=== PATIENT | female | born 1955 | race African-American/Black ===

== ENCOUNTER 2018-06-15 11:24 | Emergency (ER) | payer OTHER ==
[2018-06-15] MEDS ORDERED: NORMAL SALINE 1000 ML 1,000 ML IV ONE (11:50)
--- NOTE | 2018-06-15 11:51 | ER Document Report ---
ED Medical Screen (RME) - General Chief Complaint: Rectal Bleeding Stated Complaint: RECTAL BLEEDING Time Seen by Provider: 06/15/18 11:46 Notes: RAPID MEDICAL EVALUATION DISCLOSURE I have seen this patient as part of a Rapid Medical Evaluation and, if applicable, placed any initially appropriate orders. The patient will be seen and fully evaluated, including a full history and physical exam, by a provider ( in Main ED or Fast Track) when a room becomes available. 62-year-old female PMH hemorrhoids here with complaints of bright red blood with wiping ongoing for the past few days. She has not had a bowel movement in 2 days and believes she may have been straining. She does not know she currently has a hemorrhoid but has had a hemorrhoid in the past many years ago. She does not have any abdominal pain nausea vomiting lightheadedness. She does not take any blood thinners. EXAM Mildly tachycardic No abdominal TTP TRAVEL OUTSIDE OF THE [place] IN LAST 30 DAYS: No - Related Data Allergies/Adverse Reactions: No Known Allergies Allergy (Unverified 06/15/18 11:25) Past Medical History Skin Medical History: Comment Only Hx MRSA - MRSA BUTTOCKS JUNE 2009 Physical Exam - Vital signs Vitals: Temp Pulse Resp BP Pulse Ox 98.6 F 107 H 16 172/88 H 98 06/15/18 11:30 06/15/18 11:30 06/15/18 11:30 06/15/18 11:30 06/15/18 11:30 Course - Vital Signs Vital signs: Temp Pulse Resp BP Pulse Ox 98.6 F 107 H 16 172/88 H 98 06/15/18 11:30 06/15/18 11:30 06/15/18 11:30 06/15/18 11:30 06/15/18 11:30 Doctor's Discharge - Discharge Referrals: LOCALMD,NO [Primary Care Provider] - Follow up as needed
[2018-06-15 12:29] LABS: ABSOLUTE EOSINOPHILS # (AUTO) 0.2 10^3/uL (0.0-0.6); ABSOLUTE MONOCYTES (AUTO) 0.5 10^3/uL (0.1-1.4); ABSOLUTE NEUT (AUTO) 4.5 10^3/uL (1.7-8.2); BASOPHILS % (AUTO) 0.6 % (0-2); EOSINOPHILS % (AUTO) 2.2 % (0-6); HEMATOCRIT 43.5 % (36.0-47.0); HEMOGLOBIN 14.4 g/dL (12.0-15.5); LYMPHOCYTES % (AUTO) 36.8 % (13-45); MEAN CORPUSCULAR HEMOGLOBIN 27.2 pg (27.0-33.4); MEAN CORPUSCULAR VOLUME 82 fl (80-97); MONOCYTES % (AUTO) 5.5 % (3-13); PLATELET COUNT 239 10^3/uL (150-450); RED BLOOD COUNT 5.29 10^6/uL (3.72-5.28); RED CELL DISTRIBUTION WIDTH 13.6 % (11.5-14.0); SEGMENTED NEUTROPHILS % (AUTO) 54.9 % (42-78); TOTAL CELLS COUNTED % (AUTO) 100 %; WHITE BLOOD COUNT 8.2 10^3/uL (4.0-10.5)
[2018-06-15 12:36] LABS: INTERNATIONAL RATION (INR) 0.96; PARTIAL THROMBOPLASTIN TIME 26.1 SEC (23.5-35.8); PROTHROMBIN TIME 13.3 SEC (11.4-15.4)
[2018-06-15 12:46] LABS: ALANINE AMINOTRANSFERASE 27 U/L (9-52); ALBUMIN 4.3 g/dL (3.5-5.0); ALKALINE PHOSPHATASE 87 U/L (38-126); ANION GAP 16 (5-19); ASPARTATE AMINO TRANSFERASE 22 U/L (14-36); BILIRUBIN,DIRECT 0.2 mg/dL (0.0-0.4); BILIRUBIN,TOTAL 0.4 mg/dL (0.2-1.3); BLOOD UREA NITROGEN 10 mg/dL (7-20); CALCIUM 9.8 mg/dL (8.4-10.2); CARBON DIOXIDE 25 mmol/L (22-30); CHLORIDE 103 mmol/L (98-107); GLUCOSE 141 mg/dL (75-110); LIPASE 67.3 U/L (23-300); POTASSIUM 4.1 mmol/L (3.6-5.0); SODIUM 143.6 mmol/L (137-145); TOTAL PROTEIN 7.5 g/dL (6.3-8.2)
[2018-06-15 14:10] LABS: APPEARANCE,URINE SLIGHTLY-CLOUDY; BILIRUBIN,URINE NEGATIVE (NEGATIVE); COLOR,URINE YELLOW; GLUCOSE, URINE 150 mg/dL (NEGATIVE); KETONES,URINE NEGATIVE (NEGATIVE); LEUKOCYTE ESTERASE,URINE NEGATIVE (NEGATIVE); NITRITE,URINE NEGATIVE (NEGATIVE); PROTEIN,URINE NEGATIVE (NEGATIVE); URINE SPECIFIC GRAVITY 1.009; UROBILINOGEN,URINE NEGATIVE mg/dL (<2.0)
--- NOTE | 2018-06-15 15:32 | ER Document Report ---
ED GI Bleed / Rectal Pain - General Chief Complaint: Rectal Bleeding Stated Complaint: RECTAL BLEEDING Time Seen by Provider: 06/15/18 11:46 Mode of Arrival: Ambulatory Information source: Patient Notes: Patient is a 62-year-old female who presents to the ER today for bright red blood per rectum and on the toilet paper 2 days. Patient has a history of hemorrhoids but does not know if she has any hemorrhoids at this time. She states that she has not had a bowel movement in 3 days and has been straining a lot. She has not tried anything for her symptoms. She states that [place] went [place] but they sent her here for rectal bleeding. Patient denies any abdominal pain, nausea, vomiting, history of any abdominal disorders. TRAVEL OUTSIDE OF THE [place] IN LAST 30 DAYS: No - Related Data Allergies/Adverse Reactions: No Known Allergies Allergy (Unverified 06/15/18 11:25) Past Medical History - General Information source: Patient - Social History Smoking Status: Never Smoker Chew tobacco use (# tins/day): No Frequency of alcohol use: None Drug Abuse: None Family History: Reviewed & Not Pertinent Patient has suicidal ideation: No Patient has homicidal ideation: No Renal/ Medical History: Denies: Hx Peritoneal Dialysis Skin Medical History: Comment Only Hx MRSA - MRSA BUTTOCKS JUNE 2009 Review of Systems - Review of Systems Constitutional: No symptoms reported EENT: No symptoms reported Cardiovascular: No symptoms reported Respiratory: No symptoms reported Gastrointestinal: See HPI Genitourinary: No symptoms reported Female Genitourinary: No symptoms reported Musculoskeletal: No symptoms reported Skin: No symptoms reported Hematologic/Lymphatic: No symptoms reported Neurological/Psychological: No symptoms reported Physical Exam - Vital signs Vitals: Temp Pulse Resp BP Pulse Ox 98.6 F 107 H 16 172/88 H 98 06/15/18 11:30 06/15/18 11:30 06/15/18 11:30 06/15/18 11:30 06/15/18 11:30 - Notes Notes: PHYSICAL EXAMINATION: GENERAL: Well-appearing and in no acute distress. HEAD: Atraumatic, normocephalic. EYES: Pupils equal round and reactive to light, extraocular movements intact, sclera anicteric, conjunctiva are normal. NECK: Normal range of motion, supple without lymphadenopathy LUNGS: CTAB and equal. No wheezes rales or rhonchi. HEART: Regular rate and rhythm without murmurs ABDOMEN: Soft, no tenderness. No guarding, no rebound BACK: no vertebral tenderness, normal ROM Rectal: Multiple external and internal hemorrhoids, normal tone, specks of bright red blood after rectal exam GI/: no CVA tenderness EXTREMITIES: Normal range of motion, no pitting edema. No cyanosis. NEUROLOGICAL: Cranial nerves grossly intact. Normal sensory/motor exams. PSYCH: Normal mood, normal affect. SKIN: Warm, Dry, normal turgor, no rashes or lesions noted Course - Re-evaluation Re-evalutation: 06/15/18 18:18 Patient has multiple external and internal hemorrhoids. I will start her on a stool softener, hydrocortisone suppositories as well as cream for the external hemorrhoids. Hemoglobin is normal today. Patient has no tenderness on abdominal exam. 06/16/18 08:18 - Vital Signs Vital signs: Temp Pulse Resp BP Pulse Ox 97.7 F 88 17 139/77 H 99 06/15/18 16:35 06/15/18 16:35 06/15/18 16:35 06/15/18 16:35 06/15/18 16:35 - Laboratory Result Diagrams: 06/15/18 12:05 06/15/18 12:05 Laboratory results interpreted by me: 06/15/18 06/15/18 06/15/18 12:05 12:05 13:43 RBC 5.29 H Glucose 141 H Urine Glucose (UA) 150 H Discharge - Discharge Clinical Impression: Bleeding hemorrhoids Condition: Stable Disposition: HOME, SELF-CARE Additional Instructions: Return immediately for any new or worsening symptoms. Follow up with primary care provider, call tomorrow to make followup appointment. Prescriptions: Docusate Sodium 100 mg PO DAILY #30 capsule Hydrocortisone Acetate [Tucks] 19.8 gm RC BID #1 oint..gm. Hydrocortisone Acetate 25 mg RC BID #28 supp.rect Referrals: LOCALMD,NO [NO LOCAL MD] - Follow up as needed
[2018-06-15 16:37] VITALS: BP 139/77
== END 2018-06-15 16:37 | disposition home or self-care (01) ==
LOC: ER 11:24
DX: K64.8 Other hemorrhoids (principal); K64.4 Residual hemorrhoidal skin tags; R19.4 Change in bowel habit
CPT/HCPCS: 99283; 96360; 36415; 83690; 85025; 85610; 85730; 80053; 81001; J7030

== ENCOUNTER 2019-04-05 14:43 | Emergency (ER) | payer OTHER ==
--- NOTE | 2019-04-05 16:06 | ER Document Report ---
ED Medical Screen (RME) - General Chief Complaint: Dizziness Stated Complaint: EAR AND EYE PAIN Time Seen by Provider: 04/05/19 15:56 Mode of Arrival: Ambulatory Information source: Patient TRAVEL OUTSIDE OF THE [place] IN LAST 30 DAYS: No - HPI Patient complains to provider of: ears clogged, floater in right eye, balance problem Notes: 04/05/19 16:05 Patient here with complaints of seeing floaters in her right eye, feeling dizzy and having some balance problems and feeling like her ears are clogged up. [facility] No headache, no blurred or loss vision. No unilateral numbness, [place], weakness. No chest pain or shortness of breath. No nausea, vomiting, diarrhea. Exam Nontoxic, no distress. Nonfocal neurological exam. Clear effusion behind both TMs with no erythema. Lungs clear and equal throughout. Heart sounds normal. Plan CBC, CMP, troponin, EKG, chest x-ray, head CT, visual acuity. An initial examination was made on the patient as part of the triage process, and it was determined a more comprehensive evaluation was necessary. Initial labs were ordered and patient was transferred to another provider in the ED who assumed care and finished evaluation and plan. - Related Data Allergies/Adverse Reactions: No Known Allergies Allergy (Verified 04/05/19 14:46) Past Medical History - Social History Frequency of alcohol use: None Drug Abuse: None - Past Medical History Cardiac Medical History: Reports: Hx Hypertension Endocrine Medical History: Reports: Hx Diabetes Mellitus Type 2 Renal/ Medical History: Denies: Hx Peritoneal Dialysis Musculoskeltal Medical History: Reports Hx Arthritis Skin Medical History: Comment Only Hx MRSA - MRSA BUTTOCKS JUNE 2009 Past Surgical History: Reports: Hx Appendectomy, Hx Section - x1, Hx Hysterectomy Physical Exam - Vital signs Vitals: Temp Pulse Resp BP Pulse Ox 98.7 F 109 H 16 125/81 97 04/05/19 14:48 04/05/19 14:48 04/05/19 14:48 04/05/19 14:48 04/05/19 14:48 Course - Vital Signs Vital signs: Temp Pulse Resp BP Pulse Ox 98.7 F 109 H 16 125/81 97 04/05/19 14:48 04/05/19 14:48 04/05/19 14:48 04/05/19 14:48 04/05/19 14:48
--- NOTE | 2019-04-05 16:25 | RADIOLOGY REPORT (SQ) ---
EXAM DESCRIPTION: CHEST SINGLE VIEW COMPLETED DATE/TIME: 04/05/2019 4:15 pm REASON FOR STUDY: dizziness COMPARISON: 09/22/2007 EXAM PARAMETERS: NUMBER OF VIEWS: One view. TECHNIQUE: Single frontal radiographic view of the chest acquired. RADIATION DOSE: NA LIMITATIONS: None. FINDINGS: LUNGS AND PLEURA: No opacities, masses or pneumothorax. No pleural effusion. MEDIASTINUM AND HILAR STRUCTURES: No masses. Contour normal. HEART AND VASCULAR STRUCTURES: Heart normal in size. Normal vasculature. BONES: No acute findings. HARDWARE: None in the chest. OTHER: No other significant finding. IMPRESSION: NO ACUTE RADIOGRAPHIC FINDING IN THE CHEST. TECHNICAL DOCUMENTATION: JOB ID: [id number] [employer]- All Rights Reserved Reading location - IP/workstation name: [email or web address]
--- NOTE | 2019-04-05 16:53 | RADIOLOGY REPORT (SQ) ---
EXAM DESCRIPTION: CT HEAD WITHOUT COMPLETED DATE/TIME: 04/05/2019 4:35 pm REASON FOR STUDY: dizziness, visual floaters right eye COMPARISON: None. TECHNIQUE: Axial images acquired through the brain without intravenous contrast. Images reviewed wi th bone, brain and subdural windows. Additional sagittal and coronal reconstructions were generated. Images stored on PACS. All CT scanners at this facility use dose modulation, iterative reconstruction, and/or weight based d osing when appropriate to reduce radiation dose to as low as reasonably achievable (ALARA). [facility]: Dose Right [facility]: CareDose [facility]: Dose Right [facility]: Teradose 4D [facility]: Smart [employer] RADIATION DOSE: CT Rad equipment meets quality standard of care and radiation dose reduction techniq ues were employed. CTDIvol: 53.2 mGy. DLP: 964 mGy-cm. mGy. LIMITATIONS: None. FINDINGS: VENTRICLES: Normal size and contour. CEREBRUM: No masses. No hemorrhage. No midline shift. No evidence for acute infarction. Normal gra y/white matter differentiation. No areas of low density in the white matter. CEREBELLUM: No masses. No hemorrhage. No alteration of density. No evidence for acute infarction. EXTRAAXIAL SPACES: No fluid collections. No masses. ORBITS AND GLOBE: No intra- or extraconal masses. Normal contour of globe without masses. CALVARIUM: No fracture. PARANASAL SINUSES: No fluid or mucosal thickening. SOFT TISSUES: No mass or hematoma. OTHER: No other significant finding. IMPRESSION: NO ACUTE INTRACRANIAL IMAGING FINDINGS. EVIDENCE OF ACUTE STROKE: NO. COMMENT: Quality ID # [id number]: Final reports with documentation of one or more dose reduction techniques (e.g., Automated exposure control, adjustment of the mA and/or kV according to patient size, use of iterative reconstruction technique) TECHNICAL DOCUMENTATION: JOB ID: [id number] [employer] All Rights Reserved Reading location - IP/workstation name: [email or web address]
[2019-04-05 17:04] LABS: ABSOLUTE BASOPHILS # (AUTO) 0.1 10^3/uL (0.0-0.2); ABSOLUTE EOSINOPHILS # (AUTO) 0.2 10^3/uL (0.0-0.6); ABSOLUTE LYMPHOCYTES (AUTO) 2.8 10^3/uL (0.5-4.7); ABSOLUTE MONOCYTES (AUTO) 0.5 10^3/uL (0.1-1.4); ABSOLUTE NEUT (AUTO) 4.6 10^3/uL (1.7-8.2); BASOPHILS % (AUTO) 1.2 % (0-2); EOSINOPHILS % (AUTO) 2.1 % (0-6); HEMOGLOBIN 13.1 g/dL (12.0-15.5); LYMPHOCYTES % (AUTO) 34.2 % (13-45); MEAN CORPUSCULAR HEMOGLOBIN 27.1 pg (27.0-33.4); MEAN CORPUSCULAR HGB CONC 32.8 g/dL (32.0-36.0); MEAN CORPUSCULAR VOLUME 83 fl (80-97); MONOCYTES % (AUTO) 5.9 % (3-13); PLATELET COUNT 223 10^3/uL (150-450); RED BLOOD COUNT 4.83 10^6/uL (3.72-5.28); RED CELL DISTRIBUTION WIDTH 13.9 % (11.5-14.0); SEGMENTED NEUTROPHILS % (AUTO) 56.6 % (42-78); TOTAL CELLS COUNTED % (AUTO) 100 %; WHITE BLOOD COUNT 8.1 10^3/uL (4.0-10.5)
[2019-04-05 17:18] LABS: ALANINE AMINOTRANSFERASE 30 U/L (9-52); ALKALINE PHOSPHATASE 70 U/L (38-126); ANION GAP 10 (5-19); ASPARTATE AMINO TRANSFERASE 17 U/L (14-36); BILIRUBIN,DIRECT 0.2 mg/dL (0.0-0.4); BILIRUBIN,TOTAL 0.4 mg/dL (0.2-1.3); BLOOD UREA NITROGEN 13 mg/dL (7-20); CALCIUM 9.9 mg/dL (8.4-10.2); CARBON DIOXIDE 31 mmol/L (22-30); CHLORIDE 101 mmol/L (98-107); GLUCOSE 140 mg/dL (75-110); SODIUM 141.9 mmol/L (137-145); TOTAL PROTEIN 6.8 g/dL (6.3-8.2)
--- NOTE | 2019-04-05 21:47 | ER Document Report ---
ED General - General Chief Complaint: Dizziness Stated Complaint: EAR AND EYE PAIN Time Seen by Provider: 04/05/19 15:56 Primary Care Provider: JOSE G KAMARA DO [ACTIVE STAFF] - Follow up tomorrow Mode of Arrival: Ambulatory Notes: Patient is a 63-year-old female with a past medical history of essential hypertension here with complaints of seeing floaters in her right eye, feeling dizzy and having some balance problems and feeling like her ears are clogged up. [facility] No headache, no blurred or loss vision. No unilateral numbness, [place], weakness. No chest pain or shortness of breath. No nausea, vomiting, diarrhea. Symptoms started gradually, mild to moderate in nature, constant since onset. Nothing improves or worsens her symptoms. Denies history of similar symptoms in the past. TRAVEL OUTSIDE OF THE [place] IN LAST 30 DAYS: No - Related Data Allergies/Adverse Reactions: No Known Allergies Allergy (Verified 04/05/19 14:46) Past Medical History - General Information source: Patient - Social History Smoking Status: Never Smoker Frequency of alcohol use: None Drug Abuse: None Lives with: Family Family History: Reviewed & Not Pertinent Patient has suicidal ideation: No Patient has homicidal ideation: No - Past Medical History Cardiac Medical History: Reports: Hx Hypertension Endocrine Medical History: Reports: Hx Diabetes Mellitus Type 2 Renal/ Medical History: Denies: Hx Peritoneal Dialysis Musculoskeletal Medical History: Reports Hx Arthritis Skin Medical History: Comment Only Hx MRSA - MRSA BUTTOCKS JUNE 2009 Past Surgical History: Reports: Hx Appendectomy, Hx Section - x1, Hx Hysterectomy Review of Systems - Review of Systems Notes: Constitutional: Negative for fever. HENT: Positive for ear fullness bilaterally Eyes: Positive floaters to the right eye Cardiovascular: Negative for chest pain. Respiratory: Negative for shortness of breath. Gastrointestinal: Negative for abdominal pain, vomiting or diarrhea. Genitourinary: Negative for dysuria. Musculoskeletal: Negative for back pain. Skin: Negative for rash. Neurological: Negative for headaches, weakness or numbness. 10 point ROS negative except as marked above and in HPI. Physical Exam - Vital signs Vitals: Temp Pulse Resp BP Pulse Ox 98.7 F 109 H 16 125/81 97 04/05/19 14:48 04/05/19 14:48 04/05/19 14:48 04/05/19 14:48 04/05/19 14:48 Interpretation: Tachycardic - Resolved at the time of my assessment with a heart rate of 92 Notes: PHYSICAL EXAMINATION: GENERAL: Well-appearing, well-nourished and in no acute distress. HEAD: Atraumatic, normocephalic. EYES: Pupils equal round and reactive to light, extraocular movements intact, sclera anicteric, conjunctiva are normal. Visual acuity 20/20 at the bedside on testing. ENT: nares patent, TM serous effusions bilaterally worse on the right than the left, oropharynx clear without exudates. Moist mucous membranes. NECK: Normal range of motion, supple without lymphadenopathy LUNGS: Breath sounds clear to auscultation bilaterally and equal. No wheezes rales or rhonchi. HEART: Regular rate and rhythm without murmurs ABDOMEN: Soft, nontender, normoactive bowel sounds. No guarding, no rebound. No masses appreciated. EXTREMITIES: Normal range of motion, no pitting or edema. No cyanosis. NEUROLOGICAL: Face symmetric. Tongue protrudes midline. Extraocular motions intact. Pupils are 2 mm and equally reactive. Normal speech, normal gait. 5 out of 5 strength in both the distal and proximal upper and lower extremities bilaterally. Sensation is grossly intact throughout. Finger to nose testing normal. Pronator drift normal. PSYCH: Normal mood, normal affect. SKIN: Warm, Dry, normal turgor, no rashes or lesions noted. Course - Re-evaluation Re-evalutation: 04/05/19 21:45 Patient presents with multiple concerns. The first concern that she has is that she is having floaters in her right eye. She also reports that her ears are full on both sides and are causing her to feel somewhat unbalanced. Patient has no abnormal findings on exam. Normal cerebellar testing, steady even gait. Able to walk on heels and toes. Normal proprioception. NIH stroke scale is 0. Suspect some of her sensation of imbalance is due to what appears to be some serous effusions in both ears more dominant on the right versus left. in regards the patient having floaters of her right eye this could be a vitreous versus retinal detachment. Visual acuity 20/20 at bedside testing. Extraocular motions are intact. No proptosis. No pain to the eye. I have advised her to follow-up with her food science professor tomorrow morning first thing for further evaluation of the floaters in the eye and to evaluate for possible retinal de tachment. At this time will discharge with return precautions and follow-up recommendations. Verbal discharge instructions given a the bedside and opportunity for questions given. Medication warnings reviewed. Patient is in agreement with this plan and has verbalized understanding of return precautions and the need for primary care follow-up in the next 24-72 hours. - Vital Signs Vital signs: Temp Pulse Resp BP Pulse Ox 98.3 F 82 17 115/69 97 04/05/19 22:32 04/05/19 22:32 04/05/19 22:32 04/05/19 22:32 04/05/19 22:32 - Laboratory Result Diagrams: 04/05/19 01:36 04/05/19 16:45 Laboratory results interpreted by me: 04/05/19 16:45 Carbon Dioxide 31 H Glucose 140 H - Diagnostic Test Radiology reviewed: Image reviewed, Reports reviewed Radiology results interpreted by me: 04/05/19 21:45 CT head: No acute intracranial bleed or mass Chest x-ray: No acute infiltrate - EKG Interpretation by Me Additional EKG results interpreted by ny: 04/05/19 21:45 Sinus rhythm, rate 75. No ST elevations or depressions. QTC is 429. Discharge - Discharge Clinical Impression: Ear fullness Qualifiers: Laterality: bilateral Qualified Code(s): H93.8X3 - Other specified disorders of ear, bilateral Visual floaters Qualifiers: Laterality: right Qualified Code(s): H43.391 - Other vitreous opacities, right eye Condition: Good Disposition: HOME, SELF-CARE Additional Instructions: Please follow-up with the food science professor listed in the paperwork regarding floaters in your right eye as you could have a retinal detachment and this does require urgent evaluation. Your CT scan and blood work are otherwise unremarkable. Your exam today is not consistent with a stroke. Please follow- up with your primary care physician within the next 24 to 48 hours. Return immediately if you develop weakness, numbness, difficulty walking, difficulty speaking, pass out, or have any other symptoms that are worrisome to you. Referrals: JOSE G KAMARA DO [ACTIVE STAFF] - Follow up tomorrow
[2019-04-05 22:35] VITALS: BP 115/69
--- NOTE | 2019-04-06 22:31 | EKG REPORT ---
SEVERITY:- NORMAL ECG - SINUS RHYTHM : Confirmed by: Virgen Rivas MD 06-Apr-2019 22:31:01
== END 2019-04-05 22:34 | disposition home or self-care (01) ==
LOC: ER 14:43
DX: H43.391 Other vitreous opacities, right eye (principal); H93.8X3 Other specified disorders of ear, bilateral; I10 Essential (primary) hypertension; R42 Dizziness and giddiness; E11.9 Type 2 diabetes mellitus without complications
CPT/HCPCS: 36415; 70450; 71045; 80053; 84484; 85025; 93005; 93010; 99284

== ENCOUNTER 2020-07-16 17:29 | Emergency (ER) | payer OTHER ==
--- NOTE | 2020-07-16 19:52 | ER Document Report ---
ED Medical Screen (RME) - General Chief Complaint: Leg Pain Stated Complaint: LEFT KNEE PAIN Time Seen by Provider: 07/16/20 19:44 Mode of Arrival: Ambulatory Information source: Patient Notes: HPI; 64-year-old female sent to the emergency room by the [place] [facility] after having an ultrasound of her left leg which we were told shows a nonocclusive DVT of the left popliteal vein. Patient states she was diagnosed with a DVT and her left leg back in January has been on Eliquis since. States this was just a follow-up appointment. Patient does not know where the previous clot was. She denies any worsening pain. States she has been taking her Eliquis as prescribed. Denies any new trauma or injury. No recent travel. PE: Alert and oriented x3. Lungs: Clear to auscultation without rales, rhonchi, wheezes. Heart: Regular rate rhythm without murmurs, rubs, gallops. No calf swelling. No calf tenderness. Negative Homans. I have greeted and performed a rapid initial assessment of this patient. A comprehensive ED assessment and evaluation of the patient, analysis of test results and completion of the medical decision making process will be conducted by additional ED providers. I have specifically instructed the patient or family members with the patient to immediately return to any nursing staff should anything change in the patient's condition or with their chief complaint. TRAVEL OUTSIDE OF THE [place] IN LAST 30 DAYS: No - Related Data Allergies/Adverse Reactions: No Known Allergies Allergy (Verified 07/16/20 19:32) Home Medications: eliquis Past Medical History - Social History Frequency of alcohol use: None Drug Abuse: None - Past Medical History Cardiac Medical History: Reports: Hx Hypertension Endocrine Medical History: Reports: Hx Diabetes Mellitus Type 2 Renal/ Medical History: Denies: Hx Peritoneal Dialysis Musculoskeltal Medical History: Reports Hx Arthritis Skin Medical History: Comment Only Hx MRSA - MRSA BUTTOCKS JUNE 2009 Past Surgical History: Reports: Hx Appendectomy, Hx Section - x1, Hx Hysterectomy Physical Exam - Vital signs Vitals: Temp Pulse Resp BP Pulse Ox 98.8 F 107 H 18 128/72 H 100 07/16/20 17:35 07/16/20 17:35 07/16/20 17:35 07/16/20 17:35 07/16/20 17:35 Course - Vital Signs Vital signs: Temp Pulse Resp BP Pulse Ox 98.8 F 107 H 18 128/72 H 100 07/16/20 17:35 07/16/20 17:35 07/16/20 17:35 07/16/20 17:35 07/16/20 17:35
[2020-07-16 20:13] LABS: ABSOLUTE BASOPHILS # (AUTO) 0.1 10^3/uL (0.0-0.2); ABSOLUTE EOSINOPHILS # (AUTO) 0.3 10^3/uL (0.0-0.6); ABSOLUTE LYMPHOCYTES (AUTO) 4.1 10^3/uL (0.5-4.7); ABSOLUTE MONOCYTES (AUTO) 0.6 10^3/uL (0.1-1.4); ABSOLUTE NEUT (AUTO) 5.2 10^3/uL (1.7-8.2); BASOPHILS % (AUTO) 1.2 % (0-2); EOSINOPHILS % (AUTO) 2.5 % (0-6); HEMATOCRIT 41.9 % (36.0-47.0); HEMOGLOBIN 13.6 g/dL (12.0-15.5); MEAN CORPUSCULAR HEMOGLOBIN 26.8 pg (27.0-33.4); MEAN CORPUSCULAR HGB CONC 32.5 g/dL (32.0-36.0); MEAN CORPUSCULAR VOLUME 82 fl (80-97); MONOCYTES % (AUTO) 5.6 % (3-13); PLATELET COUNT 259 10^3/uL (150-450); RED BLOOD COUNT 5.09 10^6/uL (3.72-5.28); RED CELL DISTRIBUTION WIDTH 14.1 % (11.5-14.0); SEGMENTED NEUTROPHILS % (AUTO) 50.7 % (42-78); TOTAL CELLS COUNTED % (AUTO) 100 %; WHITE BLOOD COUNT 10.3 10^3/uL (4.0-10.5)
[2020-07-16 20:15] LABS: INTERNATIONAL RATION (INR) 1.08; PROTHROMBIN TIME 14.2 SEC (11.4-15.4)
[2020-07-16 20:32] LABS: ALBUMIN 4.4 g/dL (3.5-5.0); ALKALINE PHOSPHATASE 80 U/L (38-126); ANION GAP 9 (5-19); ASPARTATE AMINO TRANSFERASE 17 U/L (14-36); BILIRUBIN,TOTAL 0.4 mg/dL (0.2-1.3); BLOOD UREA NITROGEN 15 mg/dL (7-20); CALCIUM 9.7 mg/dL (8.4-10.2); CARBON DIOXIDE 29 mmol/L (22-30); CHLORIDE 100 mmol/L (98-107); GLUCOSE 171 mg/dL (75-110); POTASSIUM 3.9 mmol/L (3.6-5.0); TOTAL PROTEIN 7.4 g/dL (6.3-8.2)
--- NOTE | 2020-07-16 21:47 | RADIOLOGY REPORT (SQ) ---
EXAM DESCRIPTION: VENOUS UNILATERAL LOWER IMAGES COMPLETED DATE/TIME: 07/16/2020 9:16 pm REASON FOR STUDY: left leg pain COMPARISON: None. TECHNIQUE: Dynamic and static nunn scale and color images acquired of the left leg venous system. Se lected spectral images acquired with additional compression and augmentation maneuvers. The contralat eral common femoral vein and saphenofemoral junction were also imaged. Images stored on PACS. LIMITATIONS: None. FINDINGS: COMMON FEMORAL: Acute nonocclusive thrombus is seen within the common femoral vein. FEMORAL: Normal compression and augmentation. No visualized echogenic material on nunn scale. No defe cts on color images. POPLITEAL: Chronic nonocclusive thrombus is seen within the popliteal vein. CALF VESSELS: Normal compression, augmentation. No visualized echogenic material on nunn scale. No de fects on color images. GSV and SSV: Normal compression, augmentation. No visualized echogenic material on nunn scale. No def ects on color images. ANY DEEP VENOUS INSUFFICIENCY: Not evaluated. ANY EVIDENCE OF POPLITEAL CYST: No. OTHER: No other significant finding. CONTRALATERAL COMMON FEMORAL VEIN AND SAPHENOFEMORAL JUNCTION: Not imaged. IMPRESSION: 1. Acute nonocclusive thrombus within the left common femoral vein. 2. Additional chronic appearing nonocclusive thrombus within the left popliteal vein. TECHNICAL DOCUMENTATION: JOB ID: [id number] [employer]- All Rights Reserved Reading location - IP/workstation name: [email or web address]
--- NOTE | 2020-07-17 01:58 | ER Document Report ---
ED General - General Chief Complaint: Leg Pain Stated Complaint: LEFT KNEE PAIN Time Seen by Provider: 07/16/20 19:44 Primary Care Provider: BAKARI TRENT [Primary Care Provider] - Follow up as needed Mode of Arrival: Ambulatory TRAVEL OUTSIDE OF THE [place] IN LAST 30 DAYS: No - HPI Notes: Patient is a 64-year-old female with a history of diabetes, hypertension, and DVT, who presents to the emergency department for evaluation. Evidently she had a follow-up Doppler ordered today, was told she had a "clot behind her knee" so she was sent here to the ER for further evaluation. For further history, the patient states she had a DVT approximately 15 years ago. She was on blood thinners for some time, then they were discontinued. Back in January, while in [place], the patient has some leg pain and swelling, was diagnosed with a DVT, "from the ankle all the way up." She was started on Eliquis, has been taking that medication as prescribed. She had a follow-up Doppler today, she does not have any new pain or symptoms. She denies any chest pain or shortness of breath. She does have a family history of DVTs. She was told by her primary care provider that she was going to be referred on to hematology for further evaluation. - Related Data Allergies/Adverse Reactions: No Known Allergies Allergy (Verified 07/16/20 19:32) Home Medications: eliquis, lisinopril, glipizide, other medications, patient is unsure Past Medical History - General Information source: Patient - Social History Smoking Status: Never Smoker Frequency of alcohol use: None Drug Abuse: None Family History: Reviewed & Not Pertinent - Past Medical History Cardiac Medical History: Reports: Hx Hypertension Endocrine Medical History: Reports: Hx Diabetes Mellitus Type 2 Renal/ Medical History: Denies: Hx Peritoneal Dialysis Musculoskeletal Medical History: Reports Hx Arthritis Skin Medical History: Comment Only Hx MRSA - MRSA BUTTOCKS JUNE 2009 Past Surgical History: Reports: Hx Appendectomy, Hx Section - x1, Hx Hysterectomy Review of Systems - Review of Systems Constitutional: No symptoms reported EENT: No symptoms reported Cardiovascular: No symptoms reported Respiratory: No symptoms reported Gastrointestinal: No symptoms reported Genitourinary: No symptoms reported Musculoskeletal: See HPI Skin: No symptoms reported Hematologic/Lymphatic: See HPI Neurological/Psychological: No symptoms reported -: Yes All other systems reviewed and negative Physical Exam - Vital signs Vitals: Temp Pulse Resp BP Pulse Ox 98.8 F 107 H 18 128/72 H 100 07/16/20 17:35 07/16/20 17:35 07/16/20 17:35 07/16/20 17:35 07/16/20 17:35 - Notes Notes: Vital signs reviewed, please refer to chart. Head is normocephalic, atraumatic. Pupils equal round, reactive to light. Neck is supple without meningismus. Heart is regular rate and rhythm. Lungs are clear to auscultation bilaterally. Abdomen is soft, nontender, normoactive bowel sounds throughout. Extremities without cyanosis, clubbing, edema. Posterior calves are nontender. Peripheral pulses are equal, with dorsalis pedis pulses being 2+ bilaterally. Skin is warm and dry. Patient is awake, alert, neurological exam is nonfocal. Course - Re-evaluation Re-evalutation: 07/17/20 01:59 Patient presents to the emergency department for evaluation. She was diagnosed with a DVT per primary care provider referral. She is already on Eliquis. She had a repeat Doppler today which showed old thrombus in her popliteal vein, as well as a nonocclusive DVT in her common femoral. I spoke with Dr. Quintana about this finding. She states that, given the extensive blood clot she had recently, and the fact that it is much smaller now per report, it is unlikely that this patient is in fact an Eliquis failure. She has no chest pain. She has no shortness of breath. She has no pain. This is just a routine follow-up. She really does not even have any tenderness on palpation. She is getting appropriate follow-up. She states that she believes continued Eliquis treatment is appropriate. The patient was notified of this. Otherwise, she is to follow- up closely with primary care and seek out the referral to hematology/oncology. Patient is amenable to this plan was discharged. - Vital Signs Vital signs: Temp Pulse Resp BP Pulse Ox 98.2 F 78 20 159/90 H 98 07/16/20 23:18 07/16/20 23:18 07/16/20 23:18 07/16/20 23:18 07/16/20 23:18 - Laboratory Result Diagrams: 07/16/20 19:55 07/16/20 19:55 Laboratory results interpreted by me: 07/16/20 07/16/20 19:55 19:55 MCH 26.8 L RDW 14.1 H Glucose 171 H - Diagnostic Test Radiology reviewed: Reports reviewed Radiology results interpreted by me: 07/17/20 02:01 Venous Doppler Study 07/16/20 19:49 IMPRESSION: 1. Acute, nonocclusive thrombus in the common femoral vein. 2. 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 Preliminary results were given to the charge nurse by the sterile processing technologist 07/16/2020 and 2104 hours. Discharge - Discharge Clinical Impression: Left leg DVT Qualifiers: Affected thrombotic vein of extremity: unspecified vein of extremity Chronicity: acute Qualified Code(s): I82.402 - Acute embolism and thrombosis of unspecified deep veins of left lower extremity Condition: Stable Disposition: HOME, SELF-CARE Instructions: DVT Outpatient Treatment ([facility]) Additional Instructions: There was a small, potentially new blood clot noted on your exam today, but the blood clot was noted primarily to be old and smaller than reported. You are on Eliquis, which seems to be an appropriate treatment at this time. You should follow-up closely with your primary care provider tomorrow, and seek out referral to hematology/oncology as discussed. If you develop chest pain, shortness of breath, increased leg pain, leg numbness, or any other new or concerning symptoms, please return immediately to the emergency department for evaluation. Referrals: [facility] [Primary [facility]] - Follow up as needed
[2020-07-17 02:15] VITALS: BP 142/80
== END 2020-07-17 02:13 | disposition home or self-care (01) ==
LOC: ER 17:29
DX: I82.402 Acute embolism and thrombosis of unspecified deep veins of left lower extremity (principal); M25.562 Pain in left knee; M79.89 Other specified soft tissue disorders; E11.9 Type 2 diabetes mellitus without complications; I10 Essential (primary) hypertension; Z79.01 Long term (current) use of anticoagulants; Z79.899 Other long term (current) drug therapy
CPT/HCPCS: 36415; 80053; 85025; 85610; 93971; 99284

== ENCOUNTER 2020-09-19 18:24 | Emergency (ER) | payer OTHER ==
[2020-09-19] MEDS ORDERED: FAMOTIDINE INJ/PF 20 MG/2 ML SDV IV ONE (18:49)
[2020-09-19] MEDS ORDERED: METHYLPREDNISOLONE INJ 125 MG/2 ML SDV IV ONE (18:49)
[2020-09-19] MEDS ORDERED: DIPHENHYDRAMINE HCL 50 MG/ML VIAL IV ONE (18:49)
[2020-09-19] MEDS ORDERED: ONDANSETRON HCL INJ/PF 4 MG/2 ML SDV IV ONE (18:49)
--- NOTE | 2020-09-19 18:51 | ER Document Report ---
ED Medical Screen (RME) - General Chief Complaint: Eye Problem Stated Complaint: POSSIBLE ALLERGIC REACTION Time Seen by Provider: 09/19/20 18:44 Primary Care Provider: BAKARI TRENT [Primary Care Provider] - Follow up as needed Information source: Patient Notes: Patient presents stating that she had a flu shot today and is concerned she may be having a reaction to the shot. Patient complains of itchy eyes with purulent drainage. Patient reports some difficulty swallowing. Patient states that she attempted to take Benadryl to help her symptoms and then started to vomit multiple times. Patient complains of generalized abdominal soreness. Patient reports difficulty swallowing although is able to swallow her oral secretions. Patient denies any chest pain or shortness of breath. Patient reports a history of DVT, diabetes and hypertension. I have greeted and performed a rapid initial assessment of this patient. A comprehensive ED assessment and evaluation of the patient, analysis of test results and completion of the medical decision making process will be conducted by additional ED providers. TRAVEL OUTSIDE OF THE [place] IN LAST 30 DAYS: No - Related Data Allergies/Adverse Reactions: No Known Allergies Allergy (Verified 07/16/20 19:32) Past Medical History - Past Medical History Cardiac Medical History: Reports: Hx Hypertension Endocrine Medical History: Reports: Hx Diabetes Mellitus Type 2 Renal/ Medical History: Denies: Hx Peritoneal Dialysis Musculoskeltal Medical History: Reports Hx Arthritis Skin Medical History: Comment Only Hx MRSA - MRSA BUTTOCKS JUNE 2009 Past Surgical History: Reports: Hx Appendectomy, Hx Section - x1, Hx Hysterectomy Physical Exam - Vital signs Vitals: Temp Pulse Resp BP Pulse Ox 98.7 F 112 H 16 126/60 H 100 09/19/20 18:29 09/19/20 18:29 09/19/20 18:29 09/19/20 18:29 09/19/20 18:29 - General General appearance: Appears well, Alert Notes: No angioedema, no potential airway compromise. Patient able to manage oral secretions. Patient does have purulent drainage noted to eyes bilaterally Course - Vital Signs Vital signs: Temp Pulse Resp BP Pulse Ox 98.7 F 112 H 16 126/60 H 100 09/19/20 18:29 09/19/20 18:29 09/19/20 18:29 09/19/20 18:29 09/19/20 18:29 Doctor's Discharge - Discharge Referrals: [facility] [Primary [facility]] - Follow up as needed
[2020-09-19 20:22] LABS: HEMATOCRIT 44.6 % (36.0-47.0); HEMOGLOBIN 14.8 g/dL (12.0-15.5); MEAN CORPUSCULAR HEMOGLOBIN 27.5 pg (27.0-33.4); MEAN CORPUSCULAR HGB CONC 33.1 g/dL (32.0-36.0); MEAN CORPUSCULAR VOLUME 83 fl (80-97); PLATELET COUNT 247 10^3/uL (150-450); RED BLOOD COUNT 5.37 10^6/uL (3.72-5.28); RED CELL DISTRIBUTION WIDTH 13.9 % (11.5-14.0); WHITE BLOOD COUNT 16.9 10^3/uL (4.0-10.5)
[2020-09-19 20:39] LABS: ALBUMIN 4.7 g/dL (3.5-5.0); ALKALINE PHOSPHATASE 101 U/L (38-126); ANION GAP 14 (5-19); ASPARTATE AMINO TRANSFERASE 19 U/L (14-36); BILIRUBIN,DIRECT 0.4 mg/dL (0.0-0.4); BLOOD UREA NITROGEN 17 mg/dL (7-20); CARBON DIOXIDE 29 mmol/L (22-30); CHLORIDE 98 mmol/L (98-107); GLUCOSE 244 mg/dL (75-110); POTASSIUM 3.6 mmol/L (3.6-5.0); TOTAL PROTEIN 7.8 g/dL (6.3-8.2)
[2020-09-19 20:46] LABS: ABSOLUTE LYMPHOCYTES# (MANUAL) 1.4 10^3/uL (0.5-4.7); ABSOLUTE MONOCYTES # (MANUAL) 0.5 10^3/uL (0.1-1.4); BASOPHILS % (MANUAL) 0 % (0-2); EOSINOPHILS % (MANUAL) 0 % (0-6); LYMPHOCYTES % (MANUAL) 8 % (13-45); MONOCYTES % (MANUAL) 3 % (3-13); SEGMENTED NEUTROPHILS % (MAN) 89 % (42-78); TOTAL CELLS COUNTED 100
[2020-09-19 20:47] LABS: PLATELET COMMENT ADEQUATE; RBC MORPHOLOGY COMMENT NORMO-CYTIC/CHROMIC
--- NOTE | 2020-09-19 21:21 | ER Document Report ---
ED General - General Chief Complaint: Eye Problem Stated Complaint: POSSIBLE ALLERGIC REACTION Time Seen by Provider: 09/19/20 18:44 Primary Care Provider: [facility] [Primary [facility]] - Follow up as needed Notes: CHIEF COMPLAINT: Allergic reaction HPI: 65-year-old female presenting for evaluation of possible allergic reaction. Had a flu shot earlier today then developed scratchiness of the eyes with swelling around the eyes and some difficulty swallowing. No shortness of breath chest pain abdominal pain. Denies nausea vomiting. Tried to take Benadryl at home and had some difficulty swallowing so came to the emergency department ROS: See HPI - all other systems were reviewed and are otherwise negative Constitutional: no fever Eyes: no drainage, no blurred vision, positive swelling around eyes ENT: no runny nose, + sore throat Cardiovascular: no chest pain Resp: no SOB, no cough GI: no vomiting, no diarrhea, no abdominal pain : no dysuria Integumentary: + rash Allergy: no hives Musculoskeletal: no extremity pain or swelling Neurological: no numbness/tingling, no weakness MEDICATIONS: I agree with the patient medications as charted by the RN. ALLERGIES: I agree with the allergies as charted by the RN. PAST MEDICAL HISTORY/PAST SURGICAL HISTORY: Reviewed and agree as charted by RN. SOCIAL HISTORY: Reviewed and agree as charted by RN. FAMILY HISTORY: No significant familial comorbid conditions directly related to patient complaint EXAM: Reviewed vital signs as charted by RN. CONSTITUTIONAL: Alert and oriented and responds appropriately to questions. Well-appearing; well-nourished HEAD: Normocephalic; atraumatic EYES: PERRL; Conjunctivae clear, sclerae non-icteric. There is no periorbital edema noted ENT: normal nose; no rhinorrhea; moist mucous membranes; pharynx without lesions noted, no uvula edema or deviation, no tonsillar hypertrophy, phonation normal. No angioedema NECK: Supple without meningismus; non-tender; no cervical lymphadenopathy, no masses. No stridor CARD: RRR; no murmurs, no clicks, no rubs, no gallops; symmetric distal pulses RESP: Normal chest excursion without splinting or tachypnea; breath sounds clear and equal bilaterally; no wheezes, no rhonchi, no rales, pulse oximetry 97% on room air not hypoxic ABD/GI: Normal bowel sounds; non-distended; soft, non-tender, no rebound, no guarding; no palpable organomegaly or masses. BACK: The back appears normal and is non-tender to palpation, there is no CVA tenderness EXT: Normal ROM in all joints; non-tender to palpation; no cyanosis, no effusions, no edema SKIN: Normal color for age and race; warm; dry; good turgor; no acute lesions noted NEURO: Moves all extremities equally; Motor and sensory function intact PSYCH: The patient's mood and manner are appropriate. Grooming and personal hygiene are appropriate. MDM: 65-year-old female presenting for possible allergic reaction to flu shot. Given antihistamines and steroids in triage with significant improvement in symptoms we will continue to monitor but if continues to improve anticipate discharge on steroids and antihistamines TRAVEL OUTSIDE OF THE [place] IN LAST 30 DAYS: No - Related Data Allergies/Adverse Reactions: No Known Allergies Allergy (Verified 07/16/20 19:32) Past Medical History - General Information source: Patient - Social History Smoking Status: Never Smoker Family History: Reviewed & Not Pertinent - Past Medical History Cardiac Medical History: Reports: Hx Hypertension Endocrine Medical History: Reports: Hx Diabetes Mellitus Type 2 Renal/ Medical History: Denies: Hx Peritoneal Dialysis Musculoskeletal Medical History: Reports Hx Arthritis Skin Medical History: Comment Only Hx MRSA - MRSA BUTTOCKS JUNE 2009 Past Surgical History: Reports: Hx Appendectomy, Hx Section - x1, Hx Hysterectomy Physical Exam - Vital signs Vitals: Temp Pulse Resp BP Pulse Ox 98.7 F 112 H 16 126/60 H 100 09/19/20 18:29 09/19/20 18:29 09/19/20 18:29 09/19/20 18:29 09/19/20 18:29 Course - Re-evaluation Re-evalutation: 09/19/20 22:35 Patient has had no worsening of her symptoms. No periorbital edema no angioedema no stridor no shortness of breath no hives. Will discharge to follow-up with PCP 09/19/20 22:36 Will have nursing recheck vital signs and notify me of any abnormalities prior to discharge - Vital Signs Vital signs: Temp Pulse Resp BP Pulse Ox 98.7 F 112 H 16 126/60 H 100 09/19/20 18:29 09/19/20 18:29 09/19/20 18:29 09/19/20 18:29 09/19/20 18:29 - Laboratory Result Diagrams: 09/19/20 20:01 09/19/20 20:01 Laboratory results interpreted by me: 09/19/20 09/19/20 20:01 20:01 WBC 16.9 H RBC 5.37 H Seg Neuts % (Manual) 89 H Lymphocytes % (Manual) 8 L Abs Neuts (Manual) 15.0 H Est GFR (MDRD) Non-Af 59 L Glucose 244 H Discharge - Discharge Clinical Impression: Allergic reaction Qualifiers: Encounter type: initial encounter Qualified Code(s): T78.40XA - Allergy, unspec ified, initial encounter Condition: Stable Disposition: HOME, SELF-CARE Additional Instructions: 1. take the medications as prescribed 2. take Benadryl 25 mg three times daily for 3-4 days 3. follow up recheck with PCP for further evaluation and treatment, call for appt. 4. return for any shortness of breath or worsening rash or condition 5. List the flu shot as an allergy as this is likely what caused your symptoms today Prescriptions: Prednisone [Deltasone 20 mg Tablet] 2 tab PO DAILY 5 Days #10 tablet Prednisone [Deltasone 20 mg Tablet] 2 tab PO DAILY 5 Days #10 tablet Famotidine [Pepcid 20 mg Tablet] 20 mg PO BID #12 tablet Famotidine [Pepcid 20 mg Tablet] 20 mg PO BID #12 tablet Referrals: [facility] [Primary [facility]] - Follow up as needed
[2020-09-19 23:07] VITALS: BP 105/62
== END 2020-09-19 23:10 | disposition home or self-care (01) ==
LOC: ER 18:24
DX: T78.40XA Allergy, unspecified, initial encounter (principal); R13.10 Dysphagia, unspecified; L29.8 Other pruritus; X58.XXXA Exposure to other specified factors, initial encounter; I10 Essential (primary) hypertension; E11.9 Type 2 diabetes mellitus without complications; Z86.14 Personal history of Methicillin resistant Staphylococcus aureus infection
CPT/HCPCS: 99284; 96374; 96375; 36415; 83690; 85025; 80053; J1200; J2930; J2405; S0028